=== PATIENT | female | born 1975 | race African-American/Black ===

== ENCOUNTER 2019-03-30 17:23 | Inpatient (IN) ==
[2019-03-30] MEDS ORDERED: BENADRYL IV PRN (17:41)
[2019-03-30] MEDS ORDERED: PERI MEDS (DERMOPLAST/NUPERCAINAL/TUCKS) MISC PRN (17:41)
[2019-03-30] MEDS ORDERED: XYLOCAINE-MPF 1% INJ PRN (17:41)
[2019-03-30] MEDS ORDERED: AMBIEN PO PRN (17:41)
[2019-03-30] MEDS ORDERED: PITOCIN IM PRN (17:41)
[2019-03-30] MEDS ORDERED: BENADRYL PO PRN (17:41)
[2019-03-30] MEDS ORDERED: BOOSTRIX VACCINE IM ONE (17:41)
[2019-03-30] MEDS ORDERED: HYDROXYZINE IM PRN (17:41)
[2019-03-30] MEDS ORDERED: MINERAL OIL PO PRN (17:41)
[2019-03-30] MEDS ORDERED: M-M-R II VACCINE SUBQ ONE (17:41)
[2019-03-30] MEDS ORDERED: CYTOTEC PO PRN (17:41)
[2019-03-30] MEDS ORDERED: ATARAX PO PRN (17:41)
[2019-03-30] MEDS ORDERED: PITOCIN 30 UNITS/NS 30 UNIT/500 ML IV.SOLN IV SCH (17:45)
[2019-03-30] MEDS ORDERED: PITOCIN 20 UNITS/NS 20 UNITS/1,000 ML IV.SOLN IV SCH (17:45)
[2019-03-30] MEDS: MOTRIN PO PRN (18:26)
[2019-03-30 18:56] LABS: BASO# 0.03 X1000 (0.0-0.2); BASO% 0.2 % (0.0-0.8); EOS# 0.02 X1000 (0.0-0.7); EOS% 0.1 % (0.0-10.0); HEMATOCRIT 30.8 % (37.0-47.0); HEMOGLOBIN 10.1 g/dL (12.0-16.0); IMM GRAN# 0.08 X1000 (0.0-0.04); IMM GRAN% 0.6 % (0.0-0.5); LYMPH# 1.53 X1000 (1.2-3.4); LYMPH% 10.7 % (20.5-51.1); MCH 26.1 PG (27-31); MCHC 32.8 g/dL (33-37); MCV 79.6 FL (81-99); MONO# 0.58 X1000 (0.11-0.59); MONO% 4.1 % (1.7-9.3); MPV 10.4 FL (7.4-10.4); NEUT# 12.08 X1000 (1.4-6.5); NEUT% 84.3 % (42.2-75.2); PLT 305 X1000 (130-400); RBC 3.87 XMIL (4.2-5.4); RDW 14.9 % (11.5-14.5); WBC 14.32 X1000 (4.8-10.8)
--- NOTE | 2019-03-30 19:11 | OPERATIVE NOTE ---
PROCEDURE DATE: 03/30/2019 PROCEDURE PERFORMED: Spontaneous vaginal delivery. SURGEON: Dr. Landon Ruiz. PELT GRADER: None. DESCRIPTION OF PROCEDURE: The patient delivered at home a viable 38-week female with stated of 10 upon presentation via EMT. The patient also delivered placenta outside the hospital. On presentation to Labor and Delivery, the patient was thoroughly examined. [place] was assessed by mail rider staff. Perineum of patient was examined and found to be intact with no vaginal or perineal lacerations or cervical lacerations. Fundus was firm and at the umbilicus. No vaginal bleeding noted. Placenta was also examined and found to be intact with a 3-vessel cord.
--- NOTE | 2019-03-30 19:28 | HISTORY AND PHYSICAL ---
HISTORY OF PRESENT ILLNESS: Ms. Sims is a 43-year-old G4, now P4, at 38 weeks who presents to Labor and Delivery via ambulance status post vaginal delivery at home. The patient reports being seen in the office today and was found to be 2 to 3 cm dilated and reported that she was not in labor. After leaving her doctor's office today, the patient continued to contract which resulted in a vaginal delivery at home. The patient called the ambulance where she and baby was assessed. Reports delivery of placenta at home. On presentation at Labor and Delivery, the patient was found to be intact. Perineum was intact. No vaginal tears and no heavy vaginal bleeding with firm uterine fundus. The patient denies any fevers, chills, nausea, vomiting. PAST MEDICAL HISTORY: None. MEDICATIONS: vitamins. PAST SURGICAL HISTORY: None. FAMILY HISTORY: Noncontributory. SOCIAL HISTORY: Denies tobacco, alcohol, or drug use. ALLERGIES: No known drug allergies. OBSTETRICAL HISTORY: G4, P4, 4 prior full-term vaginal deliveries. Recurrent delivery included. PREVENTIVE MEDICINE SPECIALIST HISTORY: Denies STD exposure. Menarche at age 10. PHYSICAL EXAMINATION: VITAL SIGNS: Temperature 98.6 degrees, pulse rate 103, respirations 20, blood pressure 135/84, O2 saturation 100% on room air. Weight 195 pounds, height 5 feet 9 inches, BMI 24.4 kg/m2. PHYSICAL EXAMINATION: GENERAL: No acute distress. Alert, awake, oriented x3. CARDIOVASCULAR: Regular rate and rhythm. Positive S1, S2. RESPIRATORY: Clear to auscultation bilaterally. Negative rhonchi, rales, or wheezing. ABDOMEN: Firm fundus at the umbilicus, firm, nontender to palpation. Perineum intact. Cervix intact. No active bleeding. No vaginal lacerations. Placenta examined intact. Three-vessel cord noted. ASSESSMENT: Ms. Sims is a 43-year-old G4, now P4, day #0 status post vaginal delivery who presents to Labor and Delivery via ambulance secondary to out of hospital delivery of fetus and placenta. PLAN: 1. Admit to Labor and Delivery for care. 2. Obtain routine labor labs and labs. 3. Pain management with ibuprofen 800 mg p.o. q.8 hours p.r.n. 4. Regular diet. 5. Out of bed to ambulation. 6. Will continue routine care. [facility]
[2019-03-30] MEDS ORDERED: TORADOL ONE (20:49)
[2019-03-30] MEDS: PERICOLACE PO SCH (20:58)
[2019-03-30] MEDS: PERCOCET-5 PO PRN (20:59)
[2019-03-30 23:33] LABS: UR AMPHETAMINES QUAL NONE DETECTED (NONE DETECT); UR BARBITUATES QUAL NONE DETECTED (NONE DETECT); UR BENZODIAZEPIN QUAL NONE DETECTED (NONE DETECT); UR CANNABINOIDS QUAL NONE DETECTED (NONE DETECT); UR COCAINE QUAL NONE DETECTED (NONE DETECT); UR METHADONE QUAL NONE DETECTED (NONE DETECT); UR OPIATES QUAL NONE DETECTED (NONE DETECT); UR OXYCODONE QUAL PRESUMPTIVE POSITIVE (NONE DETECT); UR PCP QUAL NONE DETECTED (NONE DETECT)
[2019-03-30 23:34] LABS: RUBELLA SCREEN NON IMMUNE (IMMUNE)
[2019-03-31 00:05] LABS: RAPID HIV PRESUMPTIVE NEGATIVE
[2019-03-31] MEDS: PERCOCET-5 PO PRN ×2 (01:16→20:59)
[2019-03-31 07:08] LABS: HEMATOCRIT 25.3 % (37.0-47.0); HEMOGLOBIN 8.5 g/dL (12.0-16.0); MCH 27.1 PG (27-31); MCHC 33.6 g/dL (33-37); MCV 80.6 FL (81-99); MPV 10.7 FL (7.4-10.4); RBC 3.14 XMIL (4.2-5.4); RDW 15.1 % (11.5-14.5); WBC 13.33 X1000 (4.8-10.8)
--- NOTE | 2019-03-31 08:23 | OB/GYN PROGRESS NOTE ---
Progress Note OB - . OB Progress Note: Vital Signs - 24 hr 03/30/19 17:16 03/30/19 17:30 03/30/19 20:05 Temperature 98.6 F 97.2 F L 97.6 F Pulse Rate 103 H 95 H 105 H Respiratory Rate 20 20 20 Blood Pressure 135/84 127/82 130/77 O2 Sat by Pulse Oximetry 100 99 100 03/31/19 00:34 03/31/19 04:15 Temperature 97.1 F L 96.8 F L Pulse Rate 93 H 93 H Respiratory Rate 18 18 Blood Pressure 117/69 102/59 O2 Sat by Pulse Oximetry 100 99 Laboratory Results - last 24 hr 03/30/19 03/30/19 03/30/19 18:45 18:45 18:45 WBC 14.32 H RBC 3.87 L Hgb 10.1 L Hct 30.8 L MCV 79.6 L MCH 26.1 L MCHC 32.8 L RDW Std Deviation 14.9 H Plt Count 305 MPV 10.4 Immature Gran % (Auto) 0.6 H Neut % (Auto) 84.3 H Lymph % (Auto) 10.7 L [place] % (Auto) 4.1 Eos % (Auto) 0.1 Baso % (Auto) 0.2 Immature Gran # (Auto) 0.08 H Neut # (Auto) 12.08 H Lymph # (Auto) 1.53 [place] # (Auto) 0.58 Eos # (Auto) 0.02 Baso # (Auto) 0.03 Glucose Urine Opiates Screen Ur Oxycodone Screen Ur Methadone, Qual Ur Barbiturates Screen Ur Phencyclidine Scrn Ur Amphetamines Screen U Benzodiazepines Scrn Urine Cocaine Screen U Cannabinoids Screen RPR NON-REACTIVE HIV 1&2 Antibody Rapid Rubella Immunity Screen Blood Type Blood Type Confirm B POSITIVE Antibody Screen 03/30/19 03/30/19 03/30/19 21:57 22:38 22:38 WBC RBC Hgb Hct MCV MCH MCHC RDW Std Deviation Plt Count MPV Immature Gran % (Auto) Neut % (Auto) Lymph % (Auto) [place] % (Auto) Eos % (Auto) Baso % (Auto) Immature Gran # (Auto) Neut # (Auto) Lymph # (Auto) [place] # (Auto) Eos # (Auto) Baso # (Auto) Glucose 141 H Urine Opiates Screen NONE DETECTED Ur Oxycodone Screen PRESUMPTIVE POSITIVE A Ur Methadone, Qual NONE DETECTED Ur Barbiturates Screen NONE DETECTED Ur Phencyclidine Scrn NONE DETECTED Ur Amphetamines Screen NONE DETECTED U Benzodiazepines Scrn NONE DETECTED Urine Cocaine Screen NONE DETECTED U Cannabinoids Screen NONE DETECTED RPR HIV 1&2 Antibody Rapid PRESUMPTIVE NEGATIVE Rubella Immunity Screen NON IMMUNE H Blood Type Blood Type Confirm Antibody Screen 03/30/19 03/31/19 22:38 06:05 WBC 13.33 H RBC 3.14 L Hgb 8.5 L D Hct 25.3 L MCV 80.6 L MCH 27.1 MCHC 33.6 RDW Std Deviation 15.1 H Plt Count 270 MPV 10.7 H Immature Gran % (Auto) Neut % (Auto) Lymph % (Auto) [place] % (Auto) Eos % (Auto) Baso % (Auto) Immature Gran # (Auto) Neut # (Auto) Lymph # (Auto) [place] # (Auto) Eos # (Auto) Baso # (Auto) Glucose Urine Opiates Screen Ur Oxycodone Screen Ur Methadone, Qual Ur Barbiturates Screen Ur Phencyclidine Scrn Ur Amphetamines Screen U Benzodiazepines Scrn Urine Cocaine Screen U Cannabinoids Screen RPR HIV 1&2 Antibody Rapid Rubella Immunity Screen Blood Type B POSITIVE Blood Type Confirm Antibody Screen NEGATIVE PPD#1 Labs and hospital course reviewed. Doing well. No pain. No CP, SOB or Leg pains. No lightheadedness or dizziness. No vaginal pain. Vaginal bleeding is minimal. Ambulating and voiding without difficulty. Patient is bottle feeding. VSS and afebrile -- see above alert and oriented x 3 and in NAD. CV- RRR Abd- soft, ND/NT and no RG. Uterus firm and below umbilicus. perineum - deferred, no tears per delivery note. Ext- no calf pain and no edema. B+, Rubella Non-immune. pre delivery H&H 10.1 and 25.3 post 8.5 and 25.3 PPD#2 S/P - home including placenta. Arrival to hospital for post care. 1. Plan for D/C home tomorrow PPD #2 2. Anemia - pre-existing and secondary to delivery blood loss. Asymptomatic. FeSO4 325mg po BID written. Discussed with patient taking with OJ. 3. clinical services manager consult for limited PNC - had one visit only day of delivery with Dr. Coates. UDS + oxycodone but obtained post receiving the oxycodone on unit. 4. Rubella Non-immune. Plan for MMR prior to discharge. 5. FOB with FMLA "to fill out" but does not have packet with him. Discussed needs to fill out his portion and take to doctor's office usually to fill out.
[2019-03-31] MEDS: MOTRIN PO PRN ×2 (08:32→21:00)
[2019-03-31] MEDS: FERROUS SULFATE PO SCH ×2 (08:32→20:48)
[2019-03-31 09:59] LABS: HIV ANTIBODY SCREEN SEE COMMENTS
[2019-03-31 11:15] LABS: HEPATITIS B SURFACE ANTIGEN SEE COMMENTS
[2019-03-31] MEDS: PERICOLACE PO SCH (20:48)
--- NOTE | 2019-04-01 08:11 | OB/GYN PROGRESS NOTE ---
Progress Note OB - . Patient Problems: Current Active Problems Problem Status Onset Vaginal delivery Acute OB Progress Note: Vital Signs - 24 hr 03/31/19 08:23 03/31/19 11:10 03/31/19 15:46 Temperature 97 F L 97.5 F L 97.1 F L Pulse Rate 94 H 87 80 Respiratory Rate 20 18 18 Blood Pressure 146/77 124/85 132/82 O2 Sat by Pulse Oximetry 100 100 100 03/31/19 21:04 04/01/19 05:40 Temperature 97.4 F L 97.2 F L Pulse Rate 85 82 Respiratory Rate 18 18 Blood Pressure 132/76 122/68 O2 Sat by Pulse Oximetry 100 97 Laboratory Results - last 24 hr 03/30/19 03/31/19 22:38 00:05 Hep Bs Antigen SEE COMMENTS HIV 1&2 Antibody Screen SEE COMMENTS 43 yo PPD#2 s/p at 38 w at home with limited PNC, anemia, RNI Patient seen and examined. No complaints this AM. Pain controlled. She is ambulating and voiding without difficulty. She is tolerating a regular diet, no nausea/vomiting. Normal lochia. She is bottle-feeding. She desires depo-provera for PP contraception. She plans to follow-up with Dr. Ruiz in clinic. Iron BID started for anemia. SS consult for limited PNC. Labs: B+/-, HIV neg, HepB neg, RPR neg, RNI, Gc/Ch pending Physical Exam-General - PHYSICAL EXAM-ADULT Initial Vital Signs Reviewed: Yes - CONSTITUTIONAL General Appearance: appears well, alert, no apparent distress - EYES Eyes: PERRL/EOMI - HEAD, EARS, NOSE, MOUTH & THROAT HENMT: normocephalic/atraumatic - RESPIRATORY Respiratory: lungs clear, normal breath sounds - CARDIOVASCULAR Cardiovascular: regular rate, rhythm - GASTROINTESTINAL (ABDOMEN) Abdominal Exam: normal bowel sounds, non tender, soft, other (fundus firm, below umbilicus) - MUSCULOSKELETAL Extremity: normal range of motion - PSYCHIATRIC Psych/Mental Status: normal mood/affect Assessment/Plan - Assessment/Plan Assessment: 43 yo PPD#2 s/p at home at 38 w, limited PNC, RNI, anemia 1. HD stable, afebrile, PP Hgb 8.5 2. Routine PP care 3. MMR prior to hospital discharge for RNI 4. Desire depo-provera prior to hospital discharge for PP contraception 5. SS consult for limited PNC 6. Anticipate d/c today
[2019-04-01] MEDS ORDERED: DEPO-PROVERA IM ONE (08:12)
[2019-04-01 08:42] VITALS: BP 120/73
[2019-04-01] MEDS: FERROUS SULFATE PO SCH (08:47)
[2019-04-01] MEDS ORDERED: FLU VACCINE IM ONE (09:45)
--- NOTE | 2019-04-04 16:30 | DISCHARGE SUMMARY ---
ADMISSION DATE: 03/30/2019 DISCHARGE DATE: 04/01/2019 ADMITTING PHYSICIAN: Landon Ruiz DO. CONDITION ON DISCHARGE: Stable. FINAL DIAGNOSES: 1. A 43-year-old, G4, P 4-0-0-4 on day #2 status post spontaneous vaginal delivery at 38 weeks at home. 2. Limited care. 3. Anemia. 4. Rubella nonimmune status. PROCEDURES: None. HOSPITAL COURSE: The patient presented via EMS on 03/30 after delivery of infant at home. and placenta delivered prior to hospital arrival. Her bleeding was stable. She had a routine course. On day #2, she was ambulating and voiding without difficulty, pain was controlled, and she had normal lochia. She was deemed stable for discharge. She is bottle feeding. She desired Depo-Provera injection for contraception prior to hospital discharge. Iron b.i.d. was started for anemia. Road Consultant was consulted for limited care. She did receive care this with a doctor in [place]. However, she desires to follow up in clinic with Dr. Ruiz for her care. DISCHARGE MEDICATIONS: 1. Motrin 800 mg p.o. q.8 hours p.r.n. pain. 2. Iron 325 mg p.o. b.i.d. 3. Colace 1 tablet p.o. at bedtime p.r.n. constipation. FOLLOW-UP INSTRUCTIONS: Patient instructed to notify doctor with temperature greater than 100.4 degrees Fahrenheit, vaginal bleeding greater than a pad an hour, foul-smelling vaginal discharge, or severe abdominal pain. She was instructed to place nothing in the vagina for 6 weeks. No tampons/douching/sex. FOLLOWUP APPOINTMENT: The patient instructed to follow up with Dr. Ruiz in clinic in [address] [facility]
== END 2019-04-01 11:20 | disposition home or self-care (01) | DRG 812 ==
LOC: OPLD 17:23 → LD 17:31
PROVIDERS: ADMIT Obstetrics & Gynecology; ATTEND Obstetrics & Gynecology